=== PATIENT | male | born 1995 | race Caucasian/White ===

== ENCOUNTER 2021-03-19 19:17 | Emergency (ER) | payer BC, SELFPAY | END 2021-03-19 21:40 | disposition home or self-care (01) | LOC: MADERS 19:17 | DX: K29.00 Acute gastritis without bleeding (principal) | CPT/HCPCS: 99283 ==

== ENCOUNTER 2025-02-08 06:03 | Emergency (ER) | payer SELFPAY | END 2025-02-08 06:29 | disposition home or self-care (01) | LOC: MADERS 06:03 | DX: T16.2XXA Foreign body in left ear, initial encounter (principal); W44.8XXA Other foreign body entering into or through a natural orifice, initial encounter ==